=== PATIENT | male | born 1985 | race Caucasian/White ===

== ENCOUNTER 2021-10-26 21:35 | Emergency (ER) | payer SELFPAY ==
--- NOTE | 2021-10-26 22:34 | Emergency Department Report ---
ED Psych HPI - General Chief Complaint: Psych Stated Complaint: SUCIDIAL Time Seen by Provider: 10/26/21 22:01 Source: patient Mode of arrival: Ambulatory - History of Present Illness Initial Comments: pt reports SI, reports just left [facility] yesterday and reported that he did not receive help from them MD Complaint: suicidal ideation, feels depressed -: days(s) Associated Psychiatric Symptoms: depression, suicidal ideation History of same: Yes Quality: constant Improves With: none Associated Symptoms: denies: denies other symptoms, confusion, headache - Related Data Allergies Allergy/AdvReac Type Severity Reaction Status Date / Time No Known Allergies Allergy Unverified 10/27/21 09:01 ED Review of Systems ROS: Stated complaint: SUCIDIAL Other details as noted in HPI Constitutional: denies: chills, fever Eyes: denies: eye pain, eye discharge, vision change ENT: denies: ear pain, throat pain Respiratory: denies: cough, shortness of breath, wheezing Cardiovascular: denies: chest pain, palpitations Endocrine: no symptoms reported Gastrointestinal: denies: abdominal pain, nausea, diarrhea Genitourinary: denies: urgency, dysuria Musculoskeletal: denies: back pain, joint swelling, arthralgia Skin: denies: rash, lesions Neurological: denies: headache, weakness, paresthesias Psychiatric: denies: anxiety, depression Hematological/Lymphatic: denies: easy bleeding, easy bruising ED Past Medical Hx - Past Medical History Previous Medical History?: No Hx Hypertension: No Hx Psychiatric Treatment: Yes ED Physical Exam - General Limitations: No Limitations General appearance: alert, anxious - Head Head exam: Present: atraumatic, normocephalic - Eye Eye exam: Present: normal appearance - ENT ENT exam: Present: mucous membranes moist - Neck Neck exam: Present: normal inspection - Respiratory Respiratory exam: Present: normal lung sounds bilaterally. Absent: respiratory distress - Cardiovascular Cardiovascular Exam: Present: regular rate, normal rhythm. Absent: systolic murmur, diastolic murmur, rubs, gallop - GI/Abdominal GI/Abdominal exam: Present: soft, normal bowel sounds - Rectal Rectal exam: Present: deferred - Extremities Exam Extremities exam: Present: normal inspection - Back Exam Back exam: Present: normal inspection - Neurological Exam Neurological exam: Present: alert, oriented X3 - Psychiatric Psychiatric exam: Present: depressed, suicidal ideation - Skin Skin exam: Present: warm, dry, intact, normal color. Absent: rash ED Course Vital Signs 10/26/21 10/27/21 10/27/21 21:49 09:21 10:45 Temperature 98.9 F 98.8 F Pulse Rate 102 H 78 Respiratory 16 18 18 Rate Blood Pressure 151/90 134/85 [Right] O2 Sat by Pulse 95 99 99 Oximetry 10/27/21 14:12 Temperature 98.4 F Pulse Rate 90 Respiratory 18 Rate Blood Pressure 141/99 [Right] O2 Sat by Pulse 97 Oximetry ED Medical Decision Making - Lab Data Result diagrams: 10/26/21 23:08 10/26/21 23:08 Critical care attestation.: If time is entered above; I have spent that time in minutes in the direct care of this critically ill patient, excluding procedure time. ED Disposition Clinical Impression: Depression, Encounter for medical screening examination, Encounter for behavioral health screening Disposition: 01 HOME / SELF CARE / HOMELESS Is pt being admited?: No Does the pt Need Aspirin: No Condition: Stable Instructions: Persistent Depressive Disorder, Adult Additional Instructions: Please follow-up with outpatient resources that have been provided to the patient. Please follow-up with an outpatient primary care doctor within the next month. Please follow-up with an outpatient mental health specialist within the next week. Avoid consumption of alcohol, tobacco, smoke products and recreational drugs. Please return to the emergency room right away with new pain, worsened pain, migration of pain, projectile vomiting, change in mental status, confusion, inability tolerate liquid feeds, new, worsened or different symptoms not present on the initial emergency room evaluation professional and Agency Contacts To help [facility] (15/01) [place] Crisis Line: Suicide Prevention Line: Crisis Text Line: Text START to 579553 Emergency: 911 Outpatient COMMUNITY Behavioral Health Resources: [facility]: [facility] [address] [place], [place] [address] [facility] [address] [place] [address] Sunday thru Sunday - 8am - 5pm Call to schedule an assessment for mental health and substance abuse programs [facility] Address: [place] [address] Sunday thru Sunday- 7am-2pm [facility] Address: [address], [place] [address] Sunday thru Sunday: 8:30AM-5PM Referrals: [facility] [Outside] - 3-5 Days [facility] [Outside] - 3-5 Days LINCOLN BABIN MD [Primary Care Provider] - 3-5 Days
[2021-10-26 23:29] LABS: Basophils # (Auto) 0.1 K/mm3 (0.0-0.1); Basophils % (Auto) 0.6 % (0.0-1.8); Eosinophils # (Auto) 0.1 K/mm3 (0.0-0.4); Eosinophils % (Auto) 0.6 % (0.0-4.3); Hematocrit 42.4 % (35.5-45.6); Hemoglobin 14.5 gm/dl (11.8-15.2); Lymphocytes # (Auto) 1.8 K/mm3 (1.2-5.4); Lymphocytes % (Auto) 18.4 % (13.4-35.0); Mean Corpuscular HGB Conc 34 % (32-34); Mean Corpuscular Volume 89 fl (84-94); Monocytes # (Auto) 0.8 K/mm3 (0.0-0.8); Monocytes % (Auto) 8.1 % (0.0-7.3); Platelet Count 205 K/mm3 (140-440); Red Blood Count 4.76 M/mm3 (3.65-5.03); Red Cell Distribution Width 12.1 % (13.2-15.2)
[2021-10-26 23:43] LABS: BUN/Creatinine Ratio 12; Blood Urea Nitrogen 12 mg/dL (9-20); Calcium 9.5 mg/dL (8.4-10.2); Hemolysis Index 6
[2021-10-27 11:13] LABS: Amphetamine Screen,Urine Negative; Benzodiazepines Screen,Urine Negative; Cocaine Screen,Urine Negative; Methadone Screen,Urine Negative; Opiate Screen,Urine Negative
[2021-10-27 11:15] LABS: Amorphous Crystals,Urine 1+; Bilirubin,Urine NEG (Negative); Blood,Urine NEG (Negative); Color,Urine Yellow (Yellow); Mucus,Urine FEW /HPF; Protein,Urine <15 mg/dL mg/dL (Negative); Urobilinogen,Urine < 2.0 mg/dL (<2.0)
--- NOTE | 2021-10-27 11:21 | Consultation ---
History of Present Illness - Reason for Consult Consult date: 10/27/21 Reason for consult: mental health evaluation - History of Present Psychiatric Illness The patient is a 36 year old male with history of bipolar and PTSD. The patient reports that he was recently discharged from [facility] but did not get any help. The patient is angry, stating that he wants placement and if he gets discharged he will come right back. He denies suicidal ideation at this time but states that he will be suicidal if he gets discharge without placement. PAST PSYCHIATRIC HISTORY Diagnoses: Bipolar, PTSD Suicide attempts or Self-harm behavior: Denies Prior psychiatric hospitalizations: Yes Substance Abuse history: Meth, Heroine Previous psychiatric medications tried: Wellbutrin, Depakote Outpatient treatment: Unknown PAST MEDICAL HISTORY: None reported Family Psychiatric History: None reported or documented SOCIAL HISTORY Marital Status: Single Living Arrangements: Homeless Employment Status:Unemployed Access to guns/weapons: Denies Education: 12th grade History of Abuse: Denies Legal History:Unknown REVIEW OF SYSTEMS Constitutional: Negative for weight loss ENT: Negative for stridor Respiratory: Negative for cough or hemoptysis All other systems reviewed and are negative MENTAL STATUS EXAMINATION General Appearance and Behavior: Age appropriate, good hygiene, wearing appropriate clothes, good eye contact, anxious, cooperative Cooperation: Participating/engaged Psychomotor Behavior: Psychomotor normal Mood:Ok Affect and affective range: congruent with stated mood Thought Process: Goal directed Thought Content: reality oriented Speech: Normal tone and pace Suicidal Ideation:Denies Homicidal Ideation: Denies Hallucinations: Denies Delusions: None Impulse Control: Limited Insight and Judgment: Limited insight and judgment Memory: Limited Attention: attentive Orientation: Alert, oriented Diagnoses: Hx of Bipolar Treatment Plan DC 1013 Case management Continue home meds Continue home meds. PSYCHOTHERAPY: Supportive psychotherapy provided MEDICAL: Per primary team DELIRIUM PRECAUTIONS: Please re-orient patient frequently, keep lights on during the day, and minimize benzodiazepines and opiates as these medications could worsen patient's confusion. INTERSTATE BUS DRIVER: Per medical team DISPOSITION:Do not recommend acute psychiatric inpatient treatment. Accounting Professional will provide patient with psychiatric outpatient resources. Will sign off. Thank you for the consult. Case staffed with Dr. Wade Medications and Allergies Medications and Allergies Allergies Allergy/AdvReac Type Severity Reaction Status Date / Time No Known Allergies Allergy Unverified 10/27/21 09:01 Mental Status Exam - Vital signs Last Vital Signs Temp 98.8 F 10/27/21 09:21 Pulse 78 10/27/21 09:21 Resp 18 10/27/21 10:45 BP 134/85 10/27/21 09:21 Pulse Ox 99 10/27/21 10:45 Results Result Diagrams: 10/26/21 23:08 10/26/21 23:08 Abnormal lab results 10/26/21 10/26/21 10/26/21 Range/Units 23:08 23:08 23:08 RDW 12.1 L (13.2-15.2) % Mcleod % (Auto) 8.1 H (0.0-7.3) % Seg Neutrophils % 72.3 H (40.0-70.0) % Sodium 146 H (137-145) mmol/L Salicylates < 0.3 L (2.8-20.0) mg/dL Acetaminophen (10.0-30.0) ug/mL 10/26/21 Range/Units 23:08 RDW (13.2-15.2) % Mcleod % (Auto) (0.0-7.3) % Seg Neutrophils % (40.0-70.0) % Sodium (137-145) mmol/L Salicylates (2.8-20.0) mg/dL Acetaminophen 5.0 L (10.0-30.0) ug/mL All other labs normal.
[2021-10-27 11:36] LABS: Cannabinoid Screen,Urine Positive
--- NOTE | 2021-10-27 12:23 | Event Note ---
Date: 10/27/21 The patient was evaluated in the emergency department for symptoms described in the history of present illness. He/she was evaluated in the context of the global COVID-19 pandemic, which necessitated consideration that the patient might be at risk for infection with the virus that causes COVID-19. Institutional protocols and algorithms that pertain to the evaluation of patients at risk for COVID-19 are in a state of rapid change based on information released by regulatory bodies including the CDC and federal and state organizations. These policies and algorithms were followed during the patient's care in the emergency department. Please note that these policies, procedures and recommendations changed on a rapid basis. Laboratory studies, vital signs, nursing documentation, ER documentation, and psychiatric documentation are reviewed and appreciated. Nursing team reports no acute events this morning or concerns. The patient is awake and ambulating and does not appear to be in any acute distress. The patient was deemed medically suitable for psychiatric disposition and placement during his initial ER evaluation. The patient continues to remain medically suitable for psychiatric placement and disposition. Psychiatry team have advised discontinuation of 1013. Placing this patient on 1013 and involuntary hold/confinement will reinforce maladaptive behaviors and coping mechanisms when patient is confronted with difficult life situations. He will need to follow-up with outpatient resources that have been provided to him Vital Signs 10/26/21 10/27/21 10/27/21 21:49 09:21 10:45 Temperature 98.9 F 98.8 F Pulse Rate 102 H 78 Respiratory 16 18 18 Rate Blood Pressure 151/90 134/85 [Right] O2 Sat by Pulse 95 99 99 Oximetry Lab Results 10/26/21 10/26/21 10/26/21 Range/Units 23:08 23:08 23:08 WBC 9.9 (4.5-11.0) K/mm3 RBC 4.76 (3.65-5.03) M/mm3 Hgb 14.5 (11.8-15.2) gm/dl Hct 42.4 (35.5-45.6) % MCV 89 (84-94) fl MCH 30 (28-32) pg MCHC 34 (32-34) % RDW 12.1 L (13.2-15.2) % Plt Count 205 (140-440) K/mm3 Lymph % (Auto) 18.4 (13.4-35.0) % Columbia % (Auto) 8.1 H (0.0-7.3) % Eos % (Auto) 0.6 (0.0-4.3) % Baso % (Auto) 0.6 (0.0-1.8) % Lymph # (Auto) 1.8 (1.2-5.4) K/mm3 Columbia # (Auto) 0.8 (0.0-0.8) K/mm3 Eos # (Auto) 0.1 (0.0-0.4) K/mm3 Baso # (Auto) 0.1 (0.0-0.1) K/mm3 Seg Neutrophils % 72.3 H (40.0-70.0) % Seg Neutrophils # 7.2 (1.8-7.7) K/mm3 Sodium 146 H (137-145) mmol/L Potassium 4.2 (3.6-5.0) mmol/L Chloride 104.5 (98-107) mmol/L Carbon Dioxide 29 (22-30) mmol/L Anion Gap 17 mmol/L BUN 12 (9-20) mg/dL Creatinine 1.0 (0.8-1.3) mg/dL Estimated GFR > 60 ml/min BUN/Creatinine Ratio 12 % Glucose 98 (75-100) mg/dL Calcium 9.5 (8.4-10.2) mg/dL Urine Color (Yellow) Urine Turbidity (Clear) Urine pH (5.0-7.0) Ur Specific Mercer (1.003-1.030) Urine Protein (Negative) mg/dL Urine Glucose (UA) (Negative) mg/dL Urine Ketones (Negative) mg/dL Urine Blood (Negative) Urine Nitrite (Negative) Urine Bilirubin (Negative) Urine Urobilinogen (<2.0) mg/dL Ur Leukocyte Esterase (Negative) Urine WBC (Auto) (0.0-6.0) /HPF Urine RBC (Auto) (0.0-6.0) /HPF Amorphous Crystals Urine Mucus /HPF Salicylates < 0.3 L (2.8-20.0) mg/dL Urine Opiates Screen Urine Methadone Screen Acetaminophen (10.0-30.0) ug/mL Ur Barbiturates Screen Ur Phencyclidine Scrn Ur Amphetamines Screen U Benzodiazepines Scrn Urine Cocaine Screen U Marijuana (THC) Screen Drugs of Abuse Note 10/26/21 10/27/2110/27/22 Range/Units 23:08 10:45 10:50 WBC (4.5-11.0) K/mm3 RBC (3.65-5.03) M/mm3 Hgb (11.8-15.2) gm/dl Hct (35.5-45.6) % MCV (84-94) fl MCH (28-32) pg MCHC (32-34) % RDW (13.2-15.2) % Plt Count (140-440) K/mm3 Lymph % (Auto) (13.4-35.0) % Columbia % (Auto) (0.0-7.3) % Eos % (Auto) (0.0-4.3) % Baso % (Auto) (0.0-1.8) % Lymph # (Auto) (1.2-5.4) K/mm3 Columbia # (Auto) (0.0-0.8) K/mm3 Eos # (Auto) (0.0-0.4) K/mm3 Baso # (Auto) (0.0-0.1) K/mm3 Seg Neutrophils % (40.0-70.0) % Seg Neutrophils # (1.8-7.7) K/mm3 Sodium (137-145) mmol/L Potassium (3.6-5.0) mmol/L Chloride (98-107) mmol/L Carbon Dioxide (22-30) mmol/L Anion Gap mmol/L BUN (9-20) mg/dL Creatinine (0.8-1.3) mg/dL Estimated GFR ml/min BUN/Creatinine Ratio % Glucose (75-100) mg/dL Calcium (8.4-10.2) mg/dL Urine Color Yellow (Yellow) Urine Turbidity Clear (Clear) Urine pH 7.0 (5.0-7.0) Ur Specific Mercer 1.016 (1.003-1.030) Urine Protein <15 mg/dl (Negative) mg/dL Urine Glucose (UA) Neg (Negative) mg/dL Urine Ketones Neg (Negative) mg/dL Urine Blood Neg (Negative) Urine Nitrite Neg (Negative) Urine Bilirubin Neg (Negative) Urine Urobilinogen < 2.0 (<2.0) mg/dL Ur Leukocyte Esterase Neg (Negative) Urine WBC (Auto) 1.0 (0.0-6.0) /HPF Urine RBC (Auto) 1.0 (0.0-6.0) /HPF Amorphous Crystals 1+ Urine Mucus Few /HPF Salicylates (2.8-20.0) mg/dL Urine Opiates Screen Negative Urine Methadone Screen Negative Acetaminophen 5.0 L (10.0-30.0) ug/mL Ur Barbiturates Screen Negative Ur Phencyclidine Scrn Negative Ur Amphetamines Screen Negative U Benzodiazepines Scrn Negative Urine Cocaine Screen Negative U Marijuana (THC) Screen Positive Drugs of Abuse Note Disclamer
[2021-10-27 14:15] VITALS: BP 141/99
== END 2021-10-27 14:16 | disposition home or self-care (01) ==
LOC: ED 21:35
DX: F32.A Depression, unspecified (principal); Z13.30 Encounter for screening examination for mental health and behavioral disorders, unspecified; Z00.00 Encounter for general adult medical examination without abnormal findings; Z20.822 Contact with and (suspected) exposure to COVID-19
CPT/HCPCS: 36415; 80048; 80307; 81001; 85025; 99284; U0003; 80320; G0480